=== PATIENT | female | born 2000 | race Caucasian/White ===

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

== ENCOUNTER 2019-07-22 16:29 | Outpatient (REF) | payer MEDICAID, SELFPAY ==
[2019-07-22 20:40] LABS: Iron 40 ug/dL (50-175)
[2019-07-22 20:52] LABS: TSH (W/Ref FT4) 0.76 uIU/mL (0.52-4.13)
== END 2019-07-22 16:49 ==
LOC: NCHCN 16:29
PROVIDERS: PCP Nurse Practitioner Family; Visit Provider Nurse Practitioner Family
DX: D50.9 Iron deficiency anemia, unspecified (principal); G47.00 Insomnia, unspecified; G47.62 Sleep related leg cramps; H91.93 Unspecified hearing loss, bilateral
CPT/HCPCS: 83540; 84443

== ENCOUNTER 2021-01-29 09:58 | Outpatient (REF) | payer OTHER, SELFPAY ==
--- NOTE | 2021-01-29 09:15 | PAPFT_PTH ---
PATIENT: Liyl Mathew LOC: [facility]#:[id number] AGE/SX: 20/F ROOM: RE01/29/[address]: Michelle Bragg : 2000 BED: DIS: 01/29/2021 SPEC #: [id number] RECD: 01/29/21 13:01 STATUS: TIERRA RERoxanna #: [id number] ARMIDA: 01/29/21 09:[address]: Michelle Bragg DEPT: [facility] Cytology RECD BY: Dory Beasley Tissues: 1 - CX/ENDOCX FOR PAP SMEARS Procedures: PAP THIN PREP/UVM Screening Comments: [id number]
[2021-01-29 13:32] LABS: Abs Immature Grans 0.01 10^3/uL (0.0-0.06); Absolute Basophil Count 0.05 10^3/uL (0.0-0.2); Absolute Eosinophil Count 0.15 10^3/uL (0.0-0.7); Absolute Lymphocyte Count 1.44 10^3/uL (1.2-3.4); Absolute Monocyte Count 0.31 10^3/uL (0.1-0.8); Absolute Neutrophil Count 2.09 10^3/uL (1.2-6.7); Basophils % 1.2; Eosinophils % 3.7; HCT 37.9 % (36.0-46.0); HGB 12.3 g/dL (11.2-15.7); Immature Grans % 0.2; Lymphocytes % 35.6; MCH 28.2 pg (27.0-33.0); MCHC 32.5 % (32.0-36.0); MCV 86.9 fL (80-95); MPV 9.2 fL (8.0-11.0); Monocytes % 7.7; Neutrophils % 51.6; Nucleated RBC 0 %; Platelet Count 256 10^3/uL (130-400); RBC 4.36 10^6/uL (3.93-5.22); RDW 12.3 % (11.7-14.6); RDW-SD 39.6 fL; WBC 4.05 10^3/uL (4.4-10.8)
[2021-01-29 14:07] LABS: Iron 60 ug/dL (50-170); Total Iron Binding Capacity 399 ug/dL (250-450); Transferrin Sat 15 % (15-50)
[2021-01-29 14:39] LABS: Anion Gap 9.1 mmol/L (3-11); BUN 15 mg/dL (7-18); CO2 25.9 mmol/L (21.0-32.0); CREATININE 0.6 mg/dL (0.55-1.02); Calcium 9.2 mg/dL (8.5-10.1); Chloride 108 mmol/L (98-107); Ferritin 11 ng/mL (8-252); Glucose 83 mg/dL (74-106); Potassium 4.2 mmol/L (3.5-5.1); Sodium 143 mmol/L (136-145); TSH (W/Ref FT4) 0.57 uIU/mL (0.36-3.74)
== END 2021-01-29 09:59 | disposition home or self-care (01) ==
LOC: NCHCN 09:58
PROVIDERS: PCP Nurse Practitioner Family; Visit Provider Nurse Practitioner Family
DX: Z00.00 Encounter for general adult medical examination without abnormal findings (principal); F41.9 Anxiety disorder, unspecified; R11.0 Nausea; R07.89 Other chest pain; R61 Generalized hyperhidrosis; G43.109 Migraine with aura, not intractable, without status migrainosus; R04.0 Epistaxis; K59.00 Constipation, unspecified; Z12.4 Encounter for screening for malignant neoplasm of cervix; Z01.419 Encounter for gynecological examination (general) (routine) without abnormal findings
CPT/HCPCS: 80048; 88142; 82728; 83540; 83550; 84443; 85025

== ENCOUNTER 2023-10-27 10:47 | Outpatient (REF) | payer BC, SELFPAY ==
--- NOTE | 2023-10-27 09:00 | PAPFT_PTH ---
PATIENT: Lily Mathew LOC: [facility] U#:[id number] AGE/SX: ROOM: RE10/27/[address]: Cristin Esparza : 2000 BED: DIS: 10/27/2023 SPEC #: [id number] RECD: 10/27/23 12:52 STATUS: TIERRA REQ #: [id number] ARMIDA: 10/27/23 09:[address]: Cristin Esparza DEPT: [facility] Cytology RECD BY: Dory Beasley ENTERED: 10/27/23 12:53 SP TYPE: PAPFT OTHR DR: Michelle Bragg Tissues: 1 - CX/ENDOCX FOR PAP SMEARS Procedures: PAP THIN PREP/UVM Screening Comments: [id number] (CHLAMYDIA/GC)
[2023-10-30 13:38] LABS: Chlamydia Result Negative (Negative); GC Result Negative (Negative)
== END 2023-10-27 10:48 | disposition home or self-care (01) ==
LOC: LBN 10:47
PROVIDERS: PCP Nurse Practitioner Family; Visit Provider Advanced Practice Midwife
DX: Z01.419 Encounter for gynecological examination (general) (routine) without abnormal findings (principal); Z11.3 Encounter for screening for infections with a predominantly sexual mode of transmission; Z12.4 Encounter for screening for malignant neoplasm of cervix
CPT/HCPCS: 87491; 87591; 88142

== ENCOUNTER 2024-01-08 09:17 | Emergency (ER) | payer BC, MEDICAID, SELFPAY ==
[2024-01-08 09:21] VITALS: BP 124/54; PULSE 75; RESP 16; O2SAT 76
--- NOTE | 2024-01-08 09:39 | W.ED.GENAD ---
Discharge Plan Disposition Patient Disposition: Home Condition: Stable Discharge Details Clinical Impression: Migraine, , Vomiting Primary Care Provider: Michelle Bragg ED Provider: Sarah Earl Home Meds and New Rx's Prescriptions: No Action PNV cmb#95-ferrous fumarate-FA [ Formula] 28 mg iron- 800 mcg tablet 1 tab PO DAILY omega 5-wie-itt-fish oil [Fish Oil] 1,000 mg (120 mg-180 mg) capsule 1 cap PO DAILY Discharge Instructions Instructions: (ED) Additional Instructions: Please follow up with your [employer] OPERATOR you can get UNISOM and B6 Over the counter. take one of each pill nightly to help with nausea/ vomiting return if you aren't tolerating anything by mouth HPI General Date/Time Provider Initiated Documentation: 01/08/24 09:20. Limitations to Documentation: no limitations. Information obtained by: patient. HPI Narrative: 23-year-old female G1, P0 at 12 weeks presents for evaluation headache and vomiting. She reports a history of migraine headaches with aura. She reports that her headache started on . Since she is , she has only been taking Tylenol. She reports no significant relief with the Tylenol. She states that starting yesterday she had vomiting. She has had persistent vomiting with unable to tolerate anything by mouth even little sips of water. She does not have any nausea medication at home . she reports care and ultrasound for this . Everything has been going well so far. Related Data Home Medications Medication Instructions Recorded Confirmed omega 8-two-fwu-fish oil 1,000 mg 1 cap PO DAILY 01/08/24 01/08/24 (120 mg-180 mg) capsule (Fish Oil) vit no.95-ferrous 1 tab PO DAILY 01/08/24 01/08/24 fumarate 28 mg-folic acid 800 mcg tablet ( Formula) Allergies Allergy/AdvReac Type Severity Reaction Status Date / Time No Known Allergies Allergy Unverified 01/08/24 09:24 General Stated Complaint: Nausea/Vomit/Diar NARCISO: 3 Exam Narrative Exam Narrative: Review of Systems: All systems reviewed & are unremarkable except as noted in HPI and below Well-developed, no acute distress NCAT PERRL, normal conjunctiva RRR, no murmur Unlabored respiratory effort, CTAB Nondistended abdomen , non tender Extremities w/o deformity, no cyanosis, no edema No rashes or lesions. no focal neurologic deficits Appropriate mood and affect Course Vital Signs Vital signs: Vital Signs Pulse 75 01/08/24 09:21 Respiratory Rate 16 01/08/24 09:21 Blood Pressure 124/54 L 01/08/24 09:21 Pulse Oximetry 76 L 01/08/24 09:21 Pulse 75 01/08/24 09:21 Respiratory Rate 16 01/08/24 09:21 Blood Pressure 124/54 L 01/08/24 09:21 Pulse Oximetry 76 L 01/08/24 09:21 Medical Decision Making emergent evaluation of vomiting and headache. initial DDX includes, migraine, related vomiting, hyperemesis gravidarum, dehydration plan for IV fluids and medications, will check labs. Patient given IV fluids and medications. She reports complete resolution of her headache. She is now tolerating p.o. in the emergency department. Lab work reviewed. Mild leukocytosis, nonspecific in this setting. CMP without significant electrolyte derangement or renal failure. Urinalysis demonstrates ketones without any bacteria. Recommended continued oral hydration at home. Recommended taking Unisom and B6 for related nausea. Return precautions advised. Follow-up closely with [employer] WORKER for any other issues. Medical Records Medical records reviewed: Yes I reviewed the patient's medical records. Lab Data Lab results reviewed: Yes I reviewed the patient's lab results. Quality:SDOH Health Related Social Needs: No Data to Display PFSH All Active Problems (Updated 01/08/24 @ 11:21 by Sarah Earl MD) Vomiting (Acute) (Acute) Migraine (Chronic) Encounter for screening examination for sexually transmitted disease (Acute) Medical History Dysmenorrhea Anxiety Surgical History Tonsillectomy Family History Father Migraine Hypertension Brother Deaf from in one year Maternal Grandmother Breast cancer Social History Smoking/Tobacco Use Status: Never Second Hand Exposure: No Smoking risk assessment performed?: Yes Alcohol Intake: current Drug use: Never Substance use type: does not use 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
[2024-01-08] MEDS: ACETAMINOPHEN 1,000 MG/100 ML BTL 400 MG IVPB (09:41)
[2024-01-08] MEDS: Prochlorperazine 10 MG/2 ML VIAL IVP (09:42)
[2024-01-08] MEDS: diphenhydrAMINE 50 MG/ML VIAL 25 MG IVP (09:42)
[2024-01-08] MEDS: Normal Saline 1,000 ML 1000 ML IV (09:42)
[2024-01-08 10:03] LABS: Abs Immature Grans 0.03 10^3/uL (0.0-0.06); Absolute Basophil Count 0.03 10^3/uL (0.0-0.2); Absolute Eosinophil Count 0.09 10^3/uL (0.0-0.7); Absolute Lymphocyte Count 1.13 10^3/uL (1.2-3.4); Absolute Monocyte Count 0.38 10^3/uL (0.1-0.8); Absolute Neutrophil Count 9.39 10^3/uL (1.2-6.7); Basophils % 0.3; Eosinophils % 0.8; HCT 36.2 % (36.0-46.0); HGB 12.5 g/dL (11.2-15.7); Immature Grans % 0.3; Lymphocytes % 10.2; MCH 28.2 pg (27.0-33.0); MCHC 34.5 % (32.0-36.0); MCV 82 fL (80-95); MPV 8.4 fL (8.0-11.0); Monocytes % 3.4; Platelet Count 276 10^3/uL (130-400); RBC 4.44 10^6/uL (3.93-5.22); RDW 14.9 % (11.7-14.6); RDW-SD 44.7 fL; WBC 11.05 10^3/uL (4.4-10.8)
[2024-01-08 10:10] VITALS: O2SAT 100
[2024-01-08 10:13] LABS: ALT 21 U/L (14-59); AST 12 U/L (15-37); Albumin 3.7 g/dL (3.4-5.0); Alkaline Phosphatase 39 U/L (46-116); Anion Gap 12.2 mmol/L (3-11); BUN 8 mg/dL (7-18); Bilirubin, Total 0.4 mg/dL (0.2-1.0); CO2 24.8 mmol/L (21.0-32.0); CREATININE 0.5 mg/dL (0.55-1.02); Calcium 9.1 mg/dL (8.5-10.1); Chloride 102 mmol/L (98-107); Estimated GFR 134.23 (mL/min/1.73m2); Glucose 92 mg/dL (74-106); Magnesium 1.9 mg/dL (1.8-2.4); Potassium 3.9 mmol/L (3.5-5.1); Sodium 139 mmol/L (136-145); Total Protein 7.1 g/dL (6.4-8.2)
[2024-01-08 10:59] LABS: Bilirubin Small (Negative); Blood Negative (Negative); Clarity Clear (Clear); Glucose Negative (Negative); Ketones >=160 mg/dL (Negative); Leukocyte Esterase Negative (Negative); Nitrite Negative (Negative); Specific Gravity 1.025 (1.005-1.025); Urobilinogen 0.2 mg/dL (Up to 0.2)
[2024-01-08 11:37] VITALS: BP 108/50; PULSE 89; RESP 12; O2SAT 99
== END 2024-01-08 11:37 | disposition home or self-care (01) ==
PROVIDERS: Emergency Provider Emergency Medicine; PCP Nurse Practitioner Family
DX: O21.8 Other vomiting complicating pregnancy (principal); O26.891 Other specified pregnancy related conditions, first trimester; G43.109 Migraine with aura, not intractable, without status migrainosus; Z3A.12 12 weeks gestation of pregnancy
CPT/HCPCS: 80053; 96365; 96375; 99284; 81003; 83735; 85025; 99283; J0131; J0780; J1200

== ENCOUNTER 2024-11-28 15:04 | Outpatient (REF) | payer MEDICAID, SELFPAY ==
[2024-11-28 20:58] LABS: Abs Immature Grans 0.01 10^3/uL (0.0-0.06); Absolute Basophil Count 0.05 10^3/uL (0.0-0.2); Absolute Eosinophil Count 0.27 10^3/uL (0.0-0.7); Absolute Lymphocyte Count 1.64 10^3/uL (1.2-3.4); Absolute Monocyte Count 0.37 10^3/uL (0.1-0.8); Absolute Neutrophil Count 2.23 10^3/uL (1.2-6.7); Basophils % 1.1 %; Eosinophils % 5.9 %; HCT 39.6 % (36.0-46.0); HGB 12.8 g/dL (11.2-15.7); Immature Grans % 0.2 %; Lymphocytes % 35.9 %; MCH 26.8 pg (27.0-33.0); MCHC 32.3 % (32.0-36.0); MCV 83 fL (80-95); MPV 9.3 fL (8.0-11.0); Monocytes % 8.1 %; Neutrophils % 48.8 %; Platelet Count 313 10^3/uL (130-400); RBC 4.77 10^6/uL (3.93-5.22); RDW 13.8 % (11.7-14.6); RDW-SD 41.6 fL; WBC 4.57 10^3/uL (4.4-10.8)
[2024-11-28 21:40] LABS: ALT 33 U/L (14-59); AST 20 U/L (15-37); Albumin 4.1 g/dL (3.4-5.0); Alkaline Phosphatase 77 U/L (46-116); Anion Gap 9.6 mmol/L (3-11); BUN 13 mg/dL (7-18); Bilirubin, Total 0.2 mg/dL (0.2-1.0); CO2 28.4 mmol/L (21.0-32.0); CREATININE 0.6 mg/dL (0.55-1.02); Calcium 9.5 mg/dL (8.5-10.1); Chloride 107 mmol/L (98-107); Estimated GFR 127.67 (mL/min/1.73m2); Glucose 97 mg/dL (74-106); Potassium 4.5 mmol/L (3.5-5.1); Sodium 145 mmol/L (136-145); Total Protein 7.2 g/dL (6.4-8.2)
[2024-11-28 22:00] LABS: Iron 91 ug/dL (50-170); Total Iron Binding Capacity 410 ug/dL (250-450)
== END 2024-11-28 15:05 | disposition home or self-care (01) ==
LOC: NCHCN 15:04
PROVIDERS: PCP Nurse Practitioner Family; Visit Provider Nurse Practitioner Family
DX: D50.9 Iron deficiency anemia, unspecified (principal); L29.9 Pruritus, unspecified
CPT/HCPCS: 80053; 83540; 83550; 84443; 85025